=== PATIENT | female | born 2000 | race Caucasian/White ===

== ENCOUNTER 2021-12-20 23:50 | Emergency (ER) | payer SELFPAY ==
--- NOTE | ~2021-12-20 | XR_ITS ---
XR_[id number]_CR DATE: 12/21/2021 01:15 INDICATION: Kicked by horse. Right rib pain. TECHNIQUE: PA and lateral chest. 3 views of the right ribs. COMPARISON: None FINDINGS: No right rib fracture is detected. Normal heart size. No hilar or mediastinal enlargement. No pulmonary infiltrate or consolidation, ple ural effusion or pulmonary vascular congestion or pneumothorax. IMPRESSION: No right rib fracture No active cardiac pulmonary disease Reviewed, dictated and finalized at [facility]. Reviewed, dictated and finalized at [facility].
--- NOTE | ~2021-12-20 | XR_ITS ---
XR femur RT min 2V DATE: 12/21/2021 01:14 INDICATION: Kicked by horse TECHNIQUE: AP and lateral views of right femur COMPARISON: None FINDINGS: No fracture or dislocation, periosteal reaction or bone destruction. Normal alignment at th e hip and knee joints. IMPRESSION: Negative Reviewed, dictated and finalized at [facility]. IMPRESSION: Negative
[2021-12-21 00:15] VITALS: BP 123/70; PULSE 77; RESP 17; O2SAT 100
[2021-12-21 00:16] VITALS: BP 123/70; PULSE 68; RESP 14; O2SAT 100
--- NOTE | 2021-12-21 00:26 | ED.GENADULT ---
HPI - General Adult General Chief complaint: Extremity Injury, Lower <MIKEY Henry Last Filed: 12/21/21 01:49> Stated complaint: kicked by horse - legs and ribs <MIKEY Henry Last Filed: 12/21/21 01:49> Time Seen by Provider: 12/21/21 00:14 <MIKEY Henry Last Filed: 12/21/21 01:49> Source: patient <MIKEY Henry Last Filed: 12/21/21 01:49> Mode of arrival: ambulatory <MIKEY Henry Last Filed: 12/21/21 01:49> Limitations: no limitations <MIKEY Henry Last Filed: 12/21/21 01:49> History of Present Illness HPI narrative: Patient is a 21-year-old female who presents the ED with report of right chest wall and right leg pain status post getting kicked by a horse around 11 PM (12/20) Patient works at the [employer] and reports she was in a stable with a horse. The horse backed her into a corner before kicking her 3 times. She complains of pain to her right lateral/anterior chest wall and right thigh. She does have bruising in these areas. She denies any difficulty breathing but does have worsening pain with taking a deep breath. Denies any chest pain. Denies any nausea, vomiting, abdominal pain. She has not taken anything for pain tonight. She did not hit her head or lose consciousness. No other injuries. <MIKEY Henry Last Filed: 12/21/21 01:49> Related Data Allergies/adverse reactions: Allergies Allergy/AdvReac Type Severity Reaction Status Date / Time No Known Allergies Allergy Verified 12/21/21 00:33 <MIKEY Henry Last Filed: 12/21/21 01:49> Review of Systems Review of Systems: CONSTITUTIONAL: Denies fever, chills. CARDIOVASCULAR: Denies chest pain. RESPIRATORY: Reports pain with deep inspiration. Denies cough or dyspnea. GASTROINTESTINAL: Denies abdominal pain, nausea, vomiting. SKIN: Reports bruising to right lower chest wall, right thigh. MUSCULOSKELETAL: Reports right lateral/anterior chest wall pain, pain to right thigh. Denies back pain. NEUROLOGIC: Denies HI, LOC, headache, numbness, or weakness. <Madhavi Baptiste PA-C - Last Filed: 12/21/21 01:49> All systems reviewed & are unremarkable except as noted in HPI and below <Madhavi Baptiste PA-C - Last Filed: 12/21/21 01:49> PMFSH Past Medical History Medical History: Medical History (Updated 12/21/21 @ 01:34 by Madhavi Baptiste PA-C) No pertinent past medical history <Madhavi Baptiste PA-C - Last Filed: 12/21/21 01:49> Surgical History Surgical History: Surgical History (Updated 12/21/21 @ 00:30 by Madhavi Baptiste PA-C) No pertinent past surgical history <Madhaiv Baptiste PA-C - Last Filed: 12/21/21 01:49> Social History Social History: Social History (Updated 12/21/21 @ 00:30 by Madhavi Baptiste PA-C) Smoking status: Never smoker <Madhavi Baptiste PA-C - Last Filed: 12/21/21 01:49> Exam Narrative: GENERAL: Well appearing, well-nourished, non-toxic, in no acute distress. HEAD: Normocephalic, atraumatic. NECK: Supple. No adenopathy, no masses. RESPIRATORY: Airway patent, respirations nonlabored. Clear to auscultation bilaterally, no rales, rhonchi, wheezing. No splinting. CARDIOVASCULAR: Regular rate and rhythm without murmurs, rubs, or gallops. Peripheral pulses 2+ and equal bilaterally. ABDOMINAL: Soft, nontender, nondistended, no hepatosplenomegaly. Normoactive BS. MUSCULOSKELETAL: Moves all extremities. Strength/ROM intact without gross deformities. TTP of R anterior/lateral chest wall, along ribs, just under R breast. No palpable deformities. TTP over R anterior proximal thigh. Minimal tenderness over left lateral thigh. SKIN: Warm, dry, normal color. No rashes. Contusions/bruising forming over R lateral chest wall/R anterior thigh. NEURO: A&O X3. Speech clear. Cranial nerves II-XII grossly intact. Steady gait. No ataxic movements. PSYCHIATRIC: Appropriate mood and affect. Normal interaction. <Madhavi Rios Sk
[2021-12-21] MEDS: KETOROLAC (*BKC) 60 MG/2 ML VIAL IM (00:41)
[2021-12-21 01:48] VITALS: BP 120/75; PULSE 67; RESP 14; O2SAT 99
== END 2021-12-21 01:46 | disposition home or self-care (01) ==
PROVIDERS: Emergency Provider Emergency Medicine
DX: S20.211A Contusion of right front wall of thorax, initial encounter (principal); S70.11XA Contusion of right thigh, initial encounter; W55.12XA Struck by horse, initial encounter
CPT/HCPCS: 71101; 73552; 81025; 96372; 99284; J1885